=== PATIENT | male | born 1955 | race Caucasian/White ===

== ENCOUNTER → 2020-04-18 | Outpatient (CLI) | payer MEDICARE ==
[~2020-04-18] MED LIST: ASPI-496 PO; ASPI325T17 PO; ATOR40TA78 PO; ATOR80TA PO; ENAL2.5T PO; FLUT1DIS IH; FLUT1DIS3 INH; INSU100V8 SQ; INSU100V8 SQ-INSULIN; METF850T10 PO; METO-93 PO; METR500T PEG; MORP5SYR PEG; NITR0.4T41 SL; OMEG1CAP6 PO; OXYC-307 PO; OXYC10TA6 PO; PANT40TA3 PO; SITA100T PO; TUDORZA INH; XOPENEX INH; [UNRECOGNIZED DRUG - CODE] PO; coq10 PO; multivitamin PO
== END | disposition home or self-care (01) ==
LOC: CVU 09:18
PROVIDERS: ATTEND Internal Medicine Cardiovascular Disease
DX: I08.3 Combined rheumatic disorders of mitral, aortic and tricuspid valves (principal); I11.9 Hypertensive heart disease without heart failure; I25.10 Atherosclerotic heart disease of native coronary artery without angina pectoris
CPT/HCPCS: C8929; Q9957

== ENCOUNTER → 2020-04-21 | Outpatient (CLI) | payer MEDICARE ==
[~2020-04-21] MED LIST changes: +OMNIPAQUE 350 MG/ML, 100ML BOTTLE ONE
== END | disposition home or self-care (01) ==
LOC: RAD 13:08
PROVIDERS: ATTEND Internal Medicine Cardiovascular Disease
DX: I25.10 Atherosclerotic heart disease of native coronary artery without angina pectoris (principal); I71.2 Thoracic aortic aneurysm, without rupture; R93.1 Abnormal findings on diagnostic imaging of heart and coronary circulation
CPT/HCPCS: 36415; 71275; 82565; Q9967

== ENCOUNTER 2020-05-01 10:23 | Day surgery (SDC) | payer MEDICARE ==
[~2020-05-01] VITALS: Ht 182.9 cm; Wt 180.0 kg
[~2020-05-01 10:23] MED LIST changes: -OMNIPAQUE 350 MG/ML, 100ML BOTTLE ONE
[2020-05-01] MEDS ORDERED: TAMS-11 PO (10:53)
[2020-05-01] MEDS ORDERED: ASPI81TA45 PO (10:53)
[2020-05-01] MEDS ORDERED: METO25TA35 PO (10:53)
[2020-05-01] MEDS ORDERED: FLUT1DIS3 INH (10:53)
[2020-05-01] MEDS ORDERED: ATOR40TA78 PO (10:53)
[2020-05-01] MEDS ORDERED: GLIM4TAB8 PO (10:53)
[2020-05-01] MEDS ORDERED: METF500T17 PO (10:53)
[2020-05-01] MEDS ORDERED: DOCU-180 PO (10:53)
[2020-05-01 10:56] VITALS: BP 147/79
[2020-05-01 11:16] VITALS: BP 147/89
[2020-05-01] MEDS ORDERED: PROPOFOL 10 MG/ML, 20ML ONE (11:45)
== END 2020-05-01 13:15 | disposition home or self-care (01) ==
LOC: CACL 10:23
PROVIDERS: ATTEND Internal Medicine Cardiovascular Disease
DX: R93.1 Abnormal findings on diagnostic imaging of heart and coronary circulation (principal); Z11.59 Encounter for screening for other viral diseases; I77.819 Aortic ectasia, unspecified site; E11.22 Type 2 diabetes mellitus with diabetic chronic kidney disease; I13.10 Hypertensive heart and chronic kidney disease without heart failure, with stage 1 through stage 4 chronic kidney disease, or unspecified chronic kidney disease; N18.9 Chronic kidney disease, unspecified; I25.9 Chronic ischemic heart disease, unspecified; I25.10 Atherosclerotic heart disease of native coronary artery without angina pectoris; I25.5 Ischemic cardiomyopathy; E78.2 Mixed hyperlipidemia; G47.33 Obstructive sleep apnea (adult) (pediatric); J44.9 Chronic obstructive pulmonary disease, unspecified; E66.01 Morbid (severe) obesity due to excess calories; Z68.42 Body mass index [BMI] 45.0-49.9, adult; F17.210 Nicotine dependence, cigarettes, uncomplicated; Z79.4 Long term (current) use of insulin; Z79.82 Long term (current) use of aspirin; Z79.899 Other long term (current) drug therapy; Z85.53 Personal history of malignant neoplasm of renal pelvis; Z88.5 Allergy status to narcotic agent; Z88.8 Allergy status to other drugs, medicaments and biological substances; Z90.5 Acquired absence of kidney; Z95.1 Presence of aortocoronary bypass graft; Z99.81 Dependence on supplemental oxygen
CPT/HCPCS: 36415; 87635; 93308; J2704

== ENCOUNTER → 2021-01-20 | Outpatient (CLI) | payer MEDICARE ==
[~2021-01-20] MED LIST changes: +ASPI81TA45 PO; +DOCU-180 PO; -ENAL2.5T PO; +ENAL2.5T8 PO; +GLIM4TAB8 PO; +METF500T17 PO; +METO25TA35 PO; -OXYC-307 PO; +OXYC-380 PO; +TAMS-11 PO
== END | disposition home or self-care (01) ==
LOC: RAD 10:12
PROVIDERS: ATTEND Nurse Practitioner Family
DX: Z12.2 Encounter for screening for malignant neoplasm of respiratory organs (principal); I25.10 Atherosclerotic heart disease of native coronary artery without angina pectoris; R91.1 Solitary pulmonary nodule; Z87.891 Personal history of nicotine dependence; D17.79 Benign lipomatous neoplasm of other sites
CPT/HCPCS: 71271